=== PATIENT | male | born 1985 | race Two or more races ===

== ENCOUNTER 2021-11-07 15:52 | Emergency (ER) | payer SELFPAY ==
[~2021-11-07] VITALS: Ht 172.7 cm; Wt 96.0 kg
[2021-11-07 16:29] VITALS: BP 144/85
[2021-11-07] MEDS ORDERED: ACETAMINOPHEN 325MG TABLET PO ONE (17:00)
[2021-11-07] MEDS ORDERED: ALBU6.7H9 INH (18:30)
[2021-11-07] MEDS ORDERED: IBUP-2029 MT (18:30)
== END 2021-11-07 18:56 | disposition home or self-care (01) ==
LOC: ER 15:52
DX: U07.1 COVID-19 (principal); I10 Essential (primary) hypertension; Z72.0 Tobacco use; Z13.9 Encounter for screening, unspecified
CPT/HCPCS: 87426; 87804; 99283